=== PATIENT | female | born 1945 | race Caucasian/White ===

== ENCOUNTER 2017-08-01 08:14 | Outpatient (CLI) | payer MEDICARE, BC ==
--- NOTE | 2017-08-01 12:20 | Ultrasound Report ---
AORTA SCREEN: 08/01/2017 CLINICAL INDICATION: Screening. TECHNIQUE: Real-time scanning was performed with inside technical sales representative static images obtained. FINDINGS: The abdominal aorta is normal in caliber, measuring 1.7 cm proximally, 1.4 cm in the mid p ortion, and 1.4 cm distally. The iliacs are normal in caliber. No free fluid is seen. IMPRESSION: NO EVIDENCE OF ABDOMINAL AORTIC ANEURYSM. JOB #: [id number] EXT JOB #:[id number]
== END 2017-08-01 08:15 | disposition home or self-care (01) ==
LOC: DI 08:14
PROVIDERS: ATTEND Registered Nurse
DX: Z13.6 Encounter for screening for cardiovascular disorders (principal); Z87.891 Personal history of nicotine dependence; Z82.49 Family history of ischemic heart disease and other diseases of the circulatory system
CPT/HCPCS: 76706

== ENCOUNTER 2017-12-07 15:54 | Outpatient (CLI) | payer MEDICARE, BC ==
--- NOTE | 2017-12-13 19:50 | Mammography Report ---
DATE OF SERVICE: 12/07/2017 DIGITAL SCREENING MAMMOGRAM: 12/07/2017 CLINICAL INDICATION: A 72-year-old for screening. COMPARISON: Films from [place], [place] dated 12/10/2015, 09/24/2014, 09/07/2013. TECHNIQUE: Routine CC and MLO projections were obtained of the breasts. FINDINGS: Scattered fibroglandular tissue is present within the breasts. There are no dominant masses, suspicious microcalcifications, or secondary signs of malignancy. In comparison to the previous studies, there are no significant changes. ASSESSMENT: NO MAMMOGRAPHIC EVIDENCE OF MALIGNANCY. NO SIGNIFICANT INTERVAL CHANGES. RECOMMENDATION: Screening mammography is recommended annually. BIRADS category 1 - negative. STANDARD QUALIFYING STATEMENTS: 1. This examination was reviewed with the aid of Computed-Aided Detection (CAD). 2. A negative or benign imaging report should not delay biopsy if clinically suspicious findings are present. Consider surgical consultation if warranted. More than 5% of cancers are not identified by imaging. 3. Dense breasts may obscure an underlying neoplasm. TD: 12/13/2017 20:49
== END 2017-12-07 15:55 | disposition home or self-care (01) ==
LOC: DI 15:54
PROVIDERS: ATTEND Registered Nurse
DX: Z12.31 Encounter for screening mammogram for malignant neoplasm of breast (principal)
CPT/HCPCS: 77067

== ENCOUNTER 2020-05-15 09:19 | Outpatient (CLI) | payer BC, MEDICARE ==
--- NOTE | 2020-05-16 11:33 | Mammography Report ---
BILATERAL DIGITAL SCREENING MAMMOGRAM 3D/2D: 05/15/2020 CLINICAL: Routine screening. Comparison is made to exams dated: 12/07/2017 mammogram and 12/10/2015 mammogram - [facility]. There are scattered fibroglandular elements in both breasts. No significant masses, calcifications, or other findings are seen in either breast. There has been no significant interval change. IMPRESSION: NEGATIVE There is no mammographic evidence of malignancy. A 1 year screening mammogram is recommended. This exam was interpreted at Station ID: [id number]. NOTE: For mammograms, a report in lay terms will be sent to the patient. Approximately 15% of breast malignancies will not be visualized mammographically. In the management of a palpable breast mass, a negative mammogram must not discourage biopsy of a clinically suspicious lesion. Electronically Signed By: Mya bloom/citlalli:05/15/2020 11:31:53 ACR BI-RADS Category 1: Negative 3341F PARENCHYMAL PATTERN: (A) - The breast(s) demonstrate(s) scattered fibroglandular densities. BI-RADS CATEGORY: (1) - 1 RECOMMENDATION: (ANNUAL) - Recommend routine annual screening mammography. [id number] 1 year screening LATERALITY: (B)
== END 2020-05-15 09:20 | disposition home or self-care (01) ==
LOC: DI 09:19
PROVIDERS: ATTEND Registered Nurse
DX: Z12.31 Encounter for screening mammogram for malignant neoplasm of breast (principal)
CPT/HCPCS: 77063; 77067

== ENCOUNTER 2020-05-15 09:20 | Outpatient (CLI) | payer BC, MEDICARE ==
--- NOTE | 2020-05-15 10:56 | DEXA Report ---
Reason: OSTEOPENIA Procedure Date: 05/15/2020 Accession Number: [id number] / [id number] Procedure: DEX - Dexa Spine and/or Hip CPT Code: Final Report FULL RESULT: PROCEDURE: Dexa Spine and/or Hip INDICATIONS: OSTEOPENIA TECHNIQUE: Dual energy x-ray absorptiometry (DXA) was performed on a [employer] System. Regions measured are the AP Spine, femoral neck, and if needed forearm. COMPARISON: None. FINDINGS: Lumbar Spine: Bone Mineral Density 1.092 g/cm/cm,T score -0.7 Left Hip: Bone Mineral Density 0.907 g/cm/cm,T score -0.8 Left Femoral Neck: Bone Mineral Density 0.809 g/cm/cm, T score -1.6 (T score greater or equal to -1.0: NORMAL) (T score from -1.1 to -2.4: OSTEOPENIA) (T score less than or equal to -2.5 to: OSTEOPOROSIS) Impression: 1. Osteopenia of the left femoral neck. No osteopenia or osteoporosis of the lumbar spine. Patients with diagnosis of osteoporosis or osteopenia should have regular bone mineral density assessment. For those eligible for Medicare, routine testing is allowed once every 2 years. Testing frequency can be increased for patients who have rapidly progressing disease or for those who are receiving medical therapy to restore bone mass. Reviewed by: Jessica Reyes MD on 05/15/2020 10:54 AM PDT Approved by: Jessica Reyes MD on 05/15/2020 10:54 AM PDT Station ID: [id number]
== END 2020-05-15 09:21 | disposition home or self-care (01) ==
LOC: DI 09:20
PROVIDERS: ATTEND Registered Nurse
DX: M85.88 Other specified disorders of bone density and structure, other site (principal)
CPT/HCPCS: 77080

== ENCOUNTER 2021-02-23 07:16 | Day surgery (SDC) | payer MEDICARE, BC ==
[2021-02-23] MEDS ORDERED: LACTATED RINGERS 1,000 ML IV ONE (08:01)
[2021-02-23] MEDS ORDERED: MIDAZOLAM 2 MG/2 ML VIAL ONE ×2 (08:34→08:52)
[2021-02-23] MEDS ORDERED: fentaNYL 250 MCG/5 ML VIAL ONE (08:34)
[2021-02-23] MEDS ORDERED: LACTATED RINGERS 700 ML IV ONE (09:15)
[2021-02-23 09:44] VITALS: BP 124/65
[2021-02-23] MEDS ORDERED: ONDANSETRON 4 MG/2 ML VIAL ONE (09:47)
== END 2021-02-23 07:17 | disposition home or self-care (01) ==
LOC: SDS 07:16
PROVIDERS: ATTEND Internal Medicine Gastroenterology
PROC: 0DBN8ZX Excision of Sigmoid Colon, Via Natural or Artificial Opening Endoscopic, Diagnostic (ICD-10-PCS; 2021-02-23)
PROC: 0DBP8ZZ Excision of Rectum, Via Natural or Artificial Opening Endoscopic (ICD-10-PCS; principal; 2021-02-23 08:15)
DX: Z12.11 Encounter for screening for malignant neoplasm of colon (principal); D3A.026 Benign carcinoid tumor of the rectum; K57.30 Diverticulosis of large intestine without perforation or abscess without bleeding; I10 Essential (primary) hypertension
CPT/HCPCS: 45380; 88305; 88341; 88342; 88360; J3010; J7120

== ENCOUNTER 2022-04-15 08:35 | Day surgery (SDC) | payer MEDICARE, BC ==
[2022-04-15] MEDS ORDERED: LACTATED RINGERS 1,000 ML IV ONE ×2 (09:13→10:43)
[2022-04-15] MEDS ORDERED: PROPOFOL 500 MG/50 ML 500 MG/50 ML VIAL ONE (09:31)
--- NOTE | 2022-04-15 09:40 | ANESTHESIA ---
Pre-Anesthesia VS, & Labs - Diagnosis history of rectal cancer - Procedure sigmoidoscopy Vital Signs: Temp Pulse Resp BP Pulse Ox 36.1 C L 72 16 163/72 H 98 04/15/22 08:48 04/15/22 08:48 04/15/22 08:48 04/15/22 08:48 04/15/22 08:48 Height: 5 ft 4 in Weight (kg): 73.1 kg Body Mass Index: 27.6 BMI Classification: Overweight - NPO >8 hours - Is Patient ?: No - Lab Results Lab results reviewed: Yes Home Medications and Allergies Home Medications: Ambulatory Orders Multivitamin 1 each PO DAILY 04/14/22 Atorvastatin [Lipitor] 1 tab PO DAILY 02/23/21 Lisinopril [Zestril] 1 tab PO DAILY 02/23/21 Multivitamin 1 each PO DAILY 04/14/22 Allergies/Adverse Reactions: Allergies Allergy/AdvReac Type Severity Reaction Status Date / Time metronidazole [From Flagyl] AdvReac Unknown Verified 04/15/22 09:19 Anes History & Medical History - Anesthetic History Anesthesia Complications: reports: No previous complications Family history of Anesthesia Complications: Denies Family history of Malignant Hyperthermia: Denies - Medical History Cardiovascular: reports: Hypertension, High cholesterol Pulmonary: reports: None Gastrointestinal: reports: Colon polyps Urinary: reports: None Musculoskeletal: reports: None Endocrine/Autoimmune: reports: None Skin: reports: Rosacea Smoking Status: Never smoker History of Cancer?: Yes Other Past Medical History: hard of hearing - Surgical History General: reports: Colonoscopy Exam General: Alert, Oriented x3, Cooperative, No acute distress Dental: WNL Mouth Openin Fingerbreadth Neck Mobility: Normal Mallampati classification: II Plan Anesthesia Type: General, Total IV Consent for Procedure(s) Verified and Reviewed: Yes Code Status: Attempt Resuscitation ASA classification: 2-Mild systemic disease Is this case an emergency?: No
--- NOTE | 2022-04-15 11:14 | ANESTHESIA POST OP EVALUATION ---
Anesthesia Post Eval - Post Anesthesia Eval Vitals: Last Vital Signs Temp 36.2 C L 04/15/22 10:43 Pulse 83 04/15/22 10:43 Resp 18 04/15/22 10:43 BP 124/105 H 04/15/22 10:43 Pulse Ox 100 04/15/22 10:43 CV Function Including HR & BP: Stable Pain Control: Satisfactory Nausea & Vomiting: Negative Mental Status: Baseline Respiratory Status: Airway Patent Hydration Status: Satisfactory Anesthesia Complications: None
[2022-04-15 12:32] VITALS: BP 150/67
== END 2022-04-15 08:36 | disposition home or self-care (01) ==
LOC: SDS 08:35
PROVIDERS: ATTEND Surgery
PROC: 0DJD8ZZ Inspection of Lower Intestinal Tract, Via Natural or Artificial Opening Endoscopic (ICD-10-PCS; principal; 2022-04-15 10:30)
DX: Z09 Encounter for follow-up examination after completed treatment for conditions other than malignant neoplasm (principal); K57.30 Diverticulosis of large intestine without perforation or abscess without bleeding; Z86.012 Personal history of benign carcinoid tumor
CPT/HCPCS: 45330; J7120